=== PATIENT | female | born 1950 | race Caucasian/White ===

== ENCOUNTER 2020-10-16 07:40 | Day surgery (SDC) | payer MEDICARE, OTHER ==
--- NOTE | 2020-10-10 14:11 | HP ---
DATE OF SURGERY: 10/16/2020 HISTORY OF PRESENT ILLNESS: The patient is a 69 year-old female who presents for a five year follow up colonoscopy. Last scope 2016 was normal but she has had some colon polyps in the past. Denies GI symptoms at this time. Reports her grandfather had colon cancer. PAST MEDICAL HISTORY: Osteoporosis. PAST SURGICAL HISTORY: Hysterectomy. Tonsils. Adenoidectomy. ALLERGIES: NKDA. MEDICATIONS: Evista. FAMILY HISTORY: Colon cancer. Bone cancer. Hypertension. SOCIAL HISTORY: Occasional alcohol. REVIEW OF SYSTEMS: CONSTITUTIONAL: Denies fever or chills. CHEST: Denies shortness of breath. CVS: Denies chest pain. ABDOMEN: Denies abdominal pain. INTEGUMENTARY: Negative. PHYSICAL EXAMINATION: GENERAL: No acute distress. CHEST: Nonlabored. No shortness of breath. CVS: Regular rate and rhythm. ABDOMEN: Soft. EXTREMITIES: No edema. NEUROLOGIC: Alert. PSYCHIATRIC: Appropriate. IMPRESSION: Screening. PLAN: Colonoscopy with Dr. Jamie Bower. As dictated by Anai Piper NP.
[~2020-10-16 07:40] MED LIST: Lactated Ringers 1,000 ML IV SCH
[2020-10-16] MEDS ORDERED: Lactated Ringers 1,000 ML IV ONE (07:44)
[2020-10-16] MEDS ORDERED: DIPRIVAN 200 MG/20 ML IV ONE (09:38)
[2020-10-16] MEDS ORDERED: GlucaGen 1 MG ONE (09:56)
[2020-10-16 10:30] VITALS: O2SAT 97
[2020-10-16 12:59] VITALS: BP 138/84; PULSE 78
--- NOTE | 2020-10-16 13:24 | OP ---
SURGERY DATE/TIME: 10/16/2020 0943 PREOPERATIVE DIAGNOSIS: Follow up polyps. POSTOPERATIVE DIAGNOSIS: A 2 mm sigmoid polyp. PROCEDURE: Colonoscopy complete to cecum with hot polypectomy x1, slightly redundant colon. SURGEON: Jamie Bower M.D. ANESTHESIA: MAC. COMPLICATIONS: None. CONDITION: Stable. WITHDRAWAL TIME: Six minutes. PREP SCORE: Excellent. FOLLOW UP: Five years. INDICATION: The patient presents for five year follow up of polyps. DESCRIPTION OF PROCEDURE: Taken to endoscopy. Left lateral decubitus position. Anal digital examination satisfactory. Scope introduced. Slightly redundant colon. It took a little bit of pressure, repositioning and a half amp of Glucagon but otherwise was normal. There was no diverticulosis. The base of the cecum, ileocecal valve, appendiceal stump was all normal. On circumferential withdrawal a 2 mm polyp on the distal sigmoid was taken with hot biopsy forceps to extinction. Rectum and anus normal. PLAN: Follow up five years.
== END 2020-10-16 11:00 | disposition home or self-care (01) ==
LOC: SDC 07:40
PROVIDERS: ATTEND Surgery
DX: Z09 Encounter for follow-up examination after completed treatment for conditions other than malignant neoplasm (principal); K63.5 Polyp of colon; Z80.0 Family history of malignant neoplasm of digestive organs; Z86.010 Personal history of colon polyps
CPT/HCPCS: J1610; J2704

== ENCOUNTER 2022-01-05 08:58 | Day surgery (SDC) | payer MEDICARE, OTHER ==
[2022-01-05] MEDS ORDERED: LIDOCAINE HCL 1% 50 MG/5 ML VL PF IJ ONE (08:59)
[2022-01-05] MEDS ORDERED: Epinephrine Preservative Free 1 MG/ML IJ ONE (08:59)
[2022-01-05] MEDS ORDERED: NON-FORMULARY ITEM OP ONE (09:00)
[2022-01-05] MEDS ORDERED: TETRACAINE 0.5% STERI-UNIT SOL OP ONE ×2 (09:00)
[2022-01-05] MEDS ORDERED: Ak-Dilate OPHTHALMIC*** 1.065 ML, Cyclogyl 1% OPHTH SOL 1.065 ML, GATIFLOXACIN 0.5% OPH... OP ONE ×4 (09:00)
[2022-01-05] MEDS ORDERED: Lactated Ringers 1,000 ML IV SCH (09:00)
[2022-01-05] MEDS ORDERED: BETADINE 5% OPHTHALMIC 30 ML OP ONE (09:00)
[2022-01-05] MEDS ORDERED: cefUROXime sodium 0.005 GM in Sodium Chloride Flush 30 ML*** 0.5 ML IJ ONE (09:00)
[2022-01-05] MEDS ORDERED: Lactated Ringers 1,000 ML IV ONE (10:11)
[2022-01-05] MEDS ORDERED: Zofran 4 MG/2 ML VIAL IV PRN (11:00)
[2022-01-05] MEDS ORDERED: ACETAZOLAMIDE 250 MG TABLET PO ONE (11:00)
[2022-01-05] MEDS ORDERED: Xylocaine-Mpf 2% 5 Ml Vial ONE (11:47)
[2022-01-05] MEDS ORDERED: DIPRIVAN 200 MG/20 ML IV ONE (11:47)
[2022-01-05 12:10] VITALS: O2SAT 95
[2022-01-05 12:22] VITALS: BP 127/73; PULSE 67
== END 2022-01-05 12:25 | disposition home or self-care (01) ==
LOC: SDC 08:58
PROVIDERS: ATTEND Ophthalmology
DX: H25.811 Combined forms of age-related cataract, right eye (principal)
CPT/HCPCS: C1780; J0171; J2001; J2704; A9270-GY

== ENCOUNTER 2022-02-09 08:50 | Day surgery (SDC) | payer MEDICARE, OTHER ==
[2022-02-09] MEDS ORDERED: Lactated Ringers 1,000 ML IV ONE (08:55)
[2022-02-09] MEDS ORDERED: Lactated Ringers 1,000 ML IV SCH (09:00)
[2022-02-09] MEDS ORDERED: TETRACAINE 0.5% STERI-UNIT SOL OP ONE ×2 (09:00)
[2022-02-09] MEDS ORDERED: NON-FORMULARY ITEM OP ONE (09:00)
[2022-02-09] MEDS ORDERED: cefUROXime sodium 0.005 GM in Sodium Chloride Flush 30 ML*** 0.5 ML IJ ONE (09:00)
[2022-02-09] MEDS ORDERED: Ak-Dilate OPHTHALMIC*** 1.065 ML, Cyclogyl 1% OPHTH SOL 1.065 ML, GATIFLOXACIN 0.5% OPH... OP ONE ×4 (09:00)
[2022-02-09] MEDS ORDERED: BETADINE 5% OPHTHALMIC 30 ML OP ONE (09:00)
[2022-02-09 09:39] LABS: INR 1.03 (0.8-3.0); PROTIME 10.9 SECONDS (9.4-12.5)
[2022-02-09] MEDS ORDERED: DIPRIVAN 200 MG/20 ML IV ONE (11:26)
[2022-02-09 11:55] VITALS: O2SAT 96
[2022-02-09] MEDS ORDERED: ACETAZOLAMIDE 250 MG TABLET PO ONE (12:00)
[2022-02-09] MEDS ORDERED: Zofran 4 MG/2 ML VIAL IV PRN (12:00)
[2022-02-09 12:02] VITALS: BP 138/72; PULSE 70
[2022-02-09] MEDS ORDERED: Epinephrine Preservative Free 1 MG/ML IJ ONE (14:59)
[2022-02-09] MEDS ORDERED: LIDOCAINE HCL 1% 50 MG/5 ML VL PF IJ ONE (14:59)
== END 2022-02-09 12:10 | disposition home or self-care (01) ==
LOC: SDC 08:50
PROVIDERS: ATTEND Ophthalmology
DX: H25.812 Combined forms of age-related cataract, left eye (principal); Z79.01 Long term (current) use of anticoagulants
CPT/HCPCS: 36415; 85610; C1780; J0171; J2001; J2704; A9270-GY